=== PATIENT | male | born 1975 | race Caucasian/White ===

== ENCOUNTER 2023-12-27 12:05 | Inpatient (IN) | payer OTHER, SELFPAY ==
[2023-12-27] VITALS (21 sets, daily range): BP systolic 96–136; BP diastolic 58–95; PULSE 73–85; RESP 12–26; TEMP 36.9–37.2; O2SAT 95–99; BMI 41.0; BMI 41.5
--- NOTE | 2023-12-27 12:34 | XR_ITS ---
Patient: MARIA VICTORIA ROBLES Facility:?[facility] Patient ID:?[id number] Site Patient ID:?[id number]. Site :?1975 Study:?XRay-Extremity Right WRIST 3V-12/27/2023 1:21:01 PM Ordering Physician:DINA Final Report: INDICATION: Fall, pain. COMPARISON: None available. TECHNIQUE: Right wrist 3 views. FINDINGS: Fracture of the distal right radius with dorsal angulation of the distal fracture fragments. Associated surrounding soft tissue swelling. The fracture may extend into the articular surface. Slight widening and possible disruption of the distal radial ulnar joints. No definite fracture of the scaphoid bone. IMPRESSION: 1. Fracture of the distal right radius with dorsal angulation consistent with a Colles fracture. 2. Slight widening and possible disruption of the distal radioulnar joint. 3. Associated soft tissue swelling Dictated by Olegario Arceo MD @ 12/27/2023 2:37:38 PM Signed by:?Olegario Arceo MD @12/27/2023 2:37:38 PM (Electronic Signature)
--- NOTE | 2023-12-27 12:34 | XR_ITS ---
Patient: MARIA VICTORIA ROBLES Facility:?[facility] Patient ID:?[id number] Site Patient ID:?[id number]. Site :?1975 Study:?XRay-Chest 1V-12/27/2023 1:23:04 PM Ordering Physician:DINA Final Report: INDICATION: Fall TECHNIQUE: Single view chest. FINDINGS: Enlarged cardiac silhouette low lung volumes. Left basilar atelectasis. No effusion. No pneumothorax. Dictated by Iraida Olsen MD @ 12/27/2023 2:46:08 PM Signed by:?Iraida Olsen MD @12/27/2023 2:46:08 PM (Electronic Signature)
--- NOTE | 2023-12-27 12:35 | ED_ITS ---
HPI - Fall General Time Seen by Provider: 12:35 Date Seen: 12/27/23 Chief Complaint: Fall/Minor Trauma Stated Complaint: Fell down stairs-poss broken wrists/poss loss of c Time Seen by Provider: 12/27/23 12:08 Source: patient, family and RN notes reviewed Mode of arrival: wheelchair Limitations: no limitations History of Present Illness HPI Narrative: This 48-year-old male was seen on arrival after nursing staff triaged him and called a trauma team activation. Patient was ambulatory into the ED on his own, was brought back by wheelchair by nursing staff. He had fallen about 10 ft, feels his right ankle gave out on him. His uncle witness the fall, there was a brief loss of consciousness. Patient did see stars and lightheadedness at some point. He feels he broke both wrists in the fall, feels he almost landed flat. He denies any headache or visual changes, no neck or back pain. He is not short of breath but he is starting to feel some pain on both sides of his chest with breathing. It is across his anterior chest. It is definitely pleuritic in nature. He has had surgery on his left wrist for fracture, states he has plates and screws in it. Both of his wrists are hurting. He does not hurt above the risk, is elbows and shoulders are not bothering him. No nausea vomiting diarrhea, no abdominal pain. No visual changes. He has no pain in his pelvis, hips, knees, ankles at this time. He states he has had surgery on his right ankle and they do want to do a revision, states the ligaments or something or not quite correct. He feels this ankle gave out causing the fall. He does not drink any alcohol, no mood altering substances. Patient was walking up stairs to get a drink a water, unsure if is ankle gave out or not but suddenly he was falling backwards and then landed on his front. It certainly is concerning that there is maybe a syncopal episode here. Did review this with the patient. complaint: fall Related Data Home Medications Medication Instructions Recorded Confirmed No Known Home Medications 12/27/23 12/27/23 Allergies Allergy/AdvReac Type Severity Reaction Status Date / Time bee pollen Allergy Unknown Verified 12/27/23 12:35 shellfish derived Allergy Unknown Verified 12/27/23 12:35 Review of Systems Status of ROS: Reports: 10 or more systems reviewed and unremarkable except as noted in History and below [facility] Social History Smoking Status: Never smoker How often do you have a drink containing alcohol: never AUDIT-C Alcohol total score: 0 Non-prescribed substance use: denies use Exam Const: Vital Signs, click to edit/add: Vital Signs - 24 hr 12/27/23 12:30 12/27/23 12:34 12/27/23 12:40 Temperature 98.4 F Pulse Rate 76 Pulse Rate [Pulse Oximeter] 83 Respiratory Rate 26 H 22 Blood Pressure 100/58 L Blood Pressure [Le ft Upper Arm] 100/77 Pulse Oximetry 97 98 95 Oxygen Delivery Me od Room Air 12/27/23 12:52 12/27/23 13:24 12/27/23 13:32 Temperature Pulse Rate 77 81 83 Pulse Rate [Pulse Oximeter] Respiratory Rate 20 14 12 Blood Pressure 96/72 106/70 105/79 Blood Pressure [Le ft Upper Arm] Pulse Oximetry 96 98 98 Oxygen Delivery Me thod 12/27/23 13:41 12/27/23 13:52 12/27/23 14:02 Temperature Pulse Rate 78 77 75 Pulse Rate [Pulse Oximeter] Respiratory Rate 14 12 14 Blood Pressure 111/75 113/70 107/77 Blood Pressure [Le ft Upper Arm] Pulse Oximetry 98 97 98 Oxygen Delivery Me od 12/27/23 14:12 12/27/23 14:21 12/27/23 14:32 Temperature Pulse Rate 73 79 73 Pulse Rate [Pulse Oximeter] Respiratory Rate 14 14 16 Blood Pressure 111/87 117/88 118/74 Blood Pressure [Le ft Upper Arm] Pulse Oximetry 98 99 98 Oxygen Delivery Me thod 12/27/23 15:42 12/27/23 16:02 Temperature Pulse Rate 81 84 Pulse Rate [Pulse Oximeter] Respiratory Rate 14 16 Blood Pressure 125/80 132/87 Blood Pressure [Le ft Upper Arm] Pulse Oximetry 97 96 Oxygen Delivery Me thod Patient is in wheelchair, alert, interactive, speaking in complete sentences. His GCS is 15/15. His primary survey shows no active bleeding, protecting his airway breathing independently, no definitive circulatory issues at this time. We were able to move into the secondary survey immediately. He has some dried blood over the upper outer left zygomatic arch but no palpable tenderness or step-off. Do not see any wounds. Scalp and forehead without any hematoma. He has no midline tenderness of his cervical spine, full range of motion of his neck without any pain. Back inspected, no traumatic change, no pain on palpation. He has a little dried blood area on the end of his nose. Otherwise is face looks atraumatic. Pupils are equal round reactive, conjugate gaze. Oropharynx normal. Neck is supple, no adenopathy no thyromegaly masses or nodules. Lungs are clear, good air entry, wheeze or crackles. CV regular rate and rhythm, no murmur, normal S1-S2, no S3-S4. Abdomen is soft, nontender, nondistended, no palpable masses. Wrists do not necessarily have appreciable swelling he is holding them stiffly, does not want to move. Distal neurovascular is intact. Appears to have curvature in about the distal 3rd of his left forearm. No pain in the mid forearm up through either upper extremities. He has no pain throughout his lower extremities, is able to stand. Documenting provider has reviewed patient's vital signs: yes Course Course ED Course: Will have patient get head CT, have him on pulse oximetry and cardiac m onitoring. Will place an IV, initiate 15 mg IV Toradol for pain management. We will be looking at D-dimer, troponin just to ensure no underlying etiologies such as pulmonary embolism or cardiac manifestations causing the fall. It sounds like it was as ankle but there was LOC. he will be monitored here. He will obviously get chest x-ray, consider chest CT imaging if needed. He will get bilateral wrist x-rays. Will do full complement of labs. Reevaluation(s) Time of Reevaluation #1: 13:25 Reevaluation #1: Reviewed with patient is elevated D-dimer. Given that he is having some pleuritic pain with breathing, do think we need to proceed with chest imaging with CT PE protocol. Will also get bilateral venous ultrasounds on him given this potential nebulous history of syncope going up the stairs. Reviewed with him that both of his forearms have fractures. The left arm has a fracture with significant displacement just proximal to the plate. His right wrist is fractured as well. Will be talking to Orthopedics. I do not for see that reduction of the left fracture will be at all easy. Time of Reevaluation #2: 15:03 Reevaluation #2: Patient is back from venous ultrasound and CT of his chest. He is complaining of bilateral wrist pain. Will give him 4 mg IV morphine, 4 mg IV Zofran. I will give the morphine some time to work, will splint his arms shortly. Time of Reevaluation #3: 17:07 Reevaluation #3: Reviewed with patient that the chest CT is showing no major pulmonary emboli. We are still awaiting his ultrasound to be read. We are going to get him oral Percocet at this time for further pain management. Consultations Consultation #1: Reviewed with Yusra TA from Orthopedics. She agrees that the left arm is going to be extremely difficult to try to reduce, likely just need surgery. Will plan on splinting these, await imaging studies from that chest and venous ultrasounds to ensure no underlying venothrombotic occlusive disease. If he does not have pulmonary embolus or DVT, likely surgery tomorrow. Time: 13:44 Consultation #2: Did call [place] as patient typically sees Dr. Davies in Orthopedics. Unfortunately, there is no Ortho surgical coverage at all this weekend per Jacqueline whom I talked to in the ER. Thus, patient plans to stay here and have surgery with our Orthopedics tomorrow pending no DVT/PE. Time: 15:42 Consultation #3: Have spoken with the hospitalist Yusra Mcfarland from ortho stopped in as I was on the phone. Plan will be to admit here for surgery in the morning. Time: 17:26 Vital Signs Vital signs: Initial Vital Signs Temperature 98.4 F 12/27/23 12:30 Temperature Source Temporal Artery Scan 12/27/23 12:30 Pulse Rate 83 12/27/23 12:30 Pulse Rhythm Regular 12/27/23 12:30 Respiratory Rate 26 H 12/27/23 12:30 Blood Pressure 100/77 12/27/23 12:30 Blood Pressure Mean 84 12/27/23 12:30 Blood Pressure Position Sitting 12/27/23 12:30 Pulse Oximetry 97 12/27/23 12:30 Oxygen Delivery Method Room Air 12/27/23 12:30 Vital Signs Temperature 98.4 F 12/27/23 12:30 Pulse Rate 83 12/27/23 12:30 Respiratory Rate 26 H 12/27/23 12:30 Blood Pressure 100/77 12/27/23 12:30 Pulse Oximetry 97 12/27/23 12:30 Oxygen Delivery Method Room Air 12/27/23 12:30 Temperature 98.4 F 12/27/23 12:30 Pulse Rate 84 12/27/23 16:02 Respiratory Rate 16 12/27/23 16:02 Blood Pressure 132/87 12/27/23 16:02 Pulse Oximetry 96 12/27/23 16:02 Oxygen Delivery Method Room Air 12/27/23 12:30 Medications Administered Medications: Discontinued Medications Generic Name Dose Route Start Last Admin Trade Name Carmen PRN Reason Stop Dose Admin Ketorolac Tromethamine 15 mg 12/27/23 12:34 12/27/23 12:44 Ketorolac 15 Mg/Ml Inj IVP 12/27/23 12:35 15 mg ONCE ONE Administration Morphine Sulfate 4 mg 12/27/23 15:02 12/27/23 15:35 Morphine 4 Mg/Ml Inj IVP 12/27/23 15:03 4 mg ONCE ONE Administration Ondansetron HCl 4 mg 12/27/23 15:02 12/27/23 15:35 Ondansetron 2 Mg/Ml Inj IVP 12/27/23 15:03 4 mg ONCE ONE Administration MDM - Fall Differential Diagnosis Differential diagnosis: Likely syncope, fracture of wrist and concussion with loss of consciousness Lab Data Attestation: I reviewed the patient's lab results. Labs: Lab Results 12/27/23 Range/Units 12:43 WBC 10.14 (4.50-11.00) K/uL RBC 5.86 (4.30-5.90) m/uL Hgb 16.4 (13.5-17.5) gm/dL Hct 47.7 (37.0-53.0) % MCV 81 (80-100) fL MCH 28 (26-34) pg MCHC 34 (32-36) gm/dL RDW Coeff of [place] 12.8 (11.5-15.5) % Plt Count 291 (140-440) K/uL Neut % (Auto) 64.7 (42.0-72.0) % Lymph % (Auto) 24.7 (20-44) % [place] % (Auto) 4.8 (0.0-11.0) % Eos % (Auto) 4.3 (0.0-7.0) % Baso % (Auto) 0.7 (0.0-3.0) % Neut # (Auto) 6.56 (1.7-7.0) K/uL Lymph # (Auto) 2.50 (0.90-2.90) K/uL [place] # (Auto) 0.50 (0.00-0.90) K/UL Eos # (Auto) 0.44 (0.00-0.50) K/uL Baso # (Auto) 0.07 (0.00-0.30) K/uL Abs Immat Gran (auto) 0.08 (0.00-0.30) K/uL Imm/Tot Granulo (auto) 0.8 % D-Dimer Quant (PE/DVT) 1.29 H (0.00-0.50) ug/ml Sodium 139 (135-149) mmol/L Potassium 3.7 (3.6-5.1) mmol/L Chloride 109 (96-114) mmol/L Carbon Dioxide 21 (20-32) mmol/L Anion Gap 9 (7-15) mEq/L BUN 16 (5-24) mg/dL Creatinine 1.0 (0.5-1.5) mg/dL Estimated Creat Clear 99.16 Estimated GFR 93 ml/min Glucose 126 H (60-115) mg/dL Calcium 9.0 (8.4-10.6) mg/dL Total Bilirubin 1.0 (0.1-1.5) mg/dL AST 41 H (12-35) U/L ALT 49 (4-50) U/L Alkaline Phosphatase 80 (40-150) U/L Troponin I < 0.01 L (0.01-0.04) ng/mL C-Reactive Protein 0.6 (0.5-1.0) mg/dL Total Protein 7.6 (6.0-8.3) g/dL Albumin 4.5 (3.3-5.0) g/dL Imaging Data CT scan - head: Attestation: I have reviewed the pertinent imaging results. Radiologist's impression: Patient: MARIA VICTORIA ROBLES Facility:?[facility] Patient ID:?[id number] Site Patient ID:?[id number]. Site :?1975 Study:?CT Head W/O-12/27/2023 1:19:45 PM Ordering Physician:DINA Final Report: Indication: Trauma. Technique: CT of the brain was performed without intravenous contrast. Comparison: None relevant available at this institution. Findings: No acute blurring of the pan-white differentiation. There is no intracranial hemorrhage. The ventricles are proportionate to the cerebral sulci. The 4th ventricle is midline. Basal cisterns appear patent. No abnormal extra-axial fluid collection identified. Nonspecific hypodensity left frontal lobe. No depressed calvarial fracture. Impression: 1. No acute intracranial hemorrhage. 2. Nonspecific hypodensity left frontal lobe. This could represent sequela of prior gliosis, inflammatory or traumatic process. This may be further characterized with MRI as clinically indicated. Please note that all CT scans at this facility use dose modulation, iterative reconstruction, and/or weight-based dosing when appropriate to reduce radiation dose to as low as reasonably achievable. Dictated by Nick Agosto MD @ 12/27/2023 2:22:42 PM (Electronic Signature) Chest x-ray: Attestation: I have reviewed the pertinent imaging results. Radiologist's impression: Patient: MARIA VICTORIA ROBLES Facility:?[facility] Patient ID:?[id number] Site Patient ID:?[id number]. Site :?1975 Study:?XRay Chest 1V-12/27/2023 1:23:04 PM Ordering Physician:DIAN Final Report: INDICATION: Fall TECHNIQUE: Single view chest. FINDINGS: Enlarged cardiac silhouette low lung volumes. Left basilar atelectasis. No effusion. No pneumothorax. Dictated by Iraida Olsen MD @ 12/27/2023 2:46:08 PM (Electronic Signature) XR wrists: Attestation: I have reviewed the pertinent imaging results. My impression: My preliminary review, right distal radius fracture with comminution angulation, left forearm fracture proximal to the hardware from his prior surgical repair of his left wrist fracture, significant dislocation of this fracture fragment in the left forearm of the radius. Radiologist's impression: Patient: MARIA VICTORIA ROBLES Facility:?[facility] Patient ID:?[id number] Site Patient ID:?[id number]. Site :?1975 Study:?XRay Extremity Right WRIST 3V-12/27/2023 1:21:01 PM Ordering Physician:DINA Final Report: INDICATION: Fall, pain. COMPARISON: None available. TECHNIQUE: Right wrist 3 views. FINDINGS: Fracture of the distal right radius with dorsal angulation of the distal fracture fragments. Associated surrounding soft tissue swelling. The fracture may extend into the articular surface. Slight widening and possible disruption of the distal radial ulnar joints. No definite fracture of the scaphoid bone. IMPRESSION: 1. Fracture of the distal right radius with dorsal angulation consistent with a Colles fracture. 2. Slight widening and possible disruption of the distal radioulnar joint. 3. Associated soft tissue swelling Dictated by Olegario Arceo MD @ 12/27/2023 2:37:38 PM (Electronic Signature) [facility]: [facility] Facility:?[facility] Patient ID:?[id number] Site Patient ID:?[id number]. Site :?1975 Study:?XRay Extremity Left WRIST 3V-12/27/2023 1:21:41 PM Ordering Physician:DINA Final Report: INDICATION: Fall, pain. Comparison none. Technique : Left wrist 3 views. FINDINGS: Postoperative changes of plate and pin fixation of the distal left radius. There is a transverse displaced fracture of the distal left radius just proximal to the postoperative plate and screws. Grossly normal articulation of the radiocarpal joint. There is widening and possible disruption of the distal radial ulnar joint. Linear lucency across the scaphoid bone concerning for fracture. Soft tissue swelling about the wrist. IMPRESSION: 1. Postoperative changes plate and pin fixation of the distal left radius. 2. Transverse displaced fracture of the left radius just proximal to the postoperative site. 3. Widening and possible disruption of the left distal radioulnar joint 4. Linear lucency across the scaphoid bone concerning for fracture. Dictated by Olegario Arceo MD @ 12/27/2023 2:40:04 PM (Electronic Signature) CT scan - chest: Attestation: I have reviewed the pertinent imaging results. Radiologist's impression: Patient: [facility] Facility:?[facility] Patient ID:?[id number] Site Patient ID:?[id number]. Site :?1975 Study:?CT Chest PE W/IV-12/27/2023 3:26:56 PM Ordering Physician:DINA Final Report: INDICATION: SYNCOPE,FALL TECHNIQUE: CT chest PE was acquired with 95 cc Isovue 370 IV contrast. COMPARISON: None. FINDINGS: Heart and vasculature: Contrast opacification of the pulmonary arterial tree is adequate. No sign of pulmonary embolism to the level of the proximal segmental branches. Evaluation of the more distal segmental branches is limited due to respiratory motion artifact. Heart size is normal. Thoracic aorta and pulmonary artery are normal in caliber. Lungs and pleural: No suspicious nodules or infiltrates. Mild linear bibasilar atelectasis. No pleural effusions, pleural thickening, or pneumothorax. Lymph nodes/mediastinum: No mediastinal, hilar, or axillary adenopathy. Chest wall: No masses. Upper abdomen: No acute or significant findings. Bones: Unremarkable for age. IMPRESSION: No sign of pulmonary embolism to the level of the proximal segmental branches. Evaluation of the more distal segmental branches is limited due to respiratory motion artifact. No other evidence of acute cardiopulmonary process. Please note that all CT scans at this facility use dose modulation, iterative reconstruction, and/or weight-based dosing when appropriate to reduce radiation dose to as low as reasonably achievable. Dictated by Greg Corrigan MD @ 12/27/2023 4:44:59 PM (Electronic Signature) Venous US: Attestation: I have reviewed the pertinent imaging results. Radiologist's impression: [facility] Patient ID:?[id number] Site Patient ID:?[id number]. Site :?1975 Study:?US Extremity Venous BILAT LOWER-12/27/2023 3:30:41 PM Ordering Physician:DINA Final Report: INDICATION: Bilateral lower extremity swelling. TECHNIQUE: Bilateral lower extremity Doppler venous ultrasound examination was performed. Grayscale and color Doppler images were obtained. COMPARISON: None. FINDINGS: RIGHT LOWER EXTREMITY: Common femoral vein: Fully compressible. No deep vein thrombus. Normal flow and response to augmentation on color Doppler imaging. Superficial femoral vein: Fully compressible. No deep vein thrombus. Normal flow on color Doppler imaging. Deep femoral vein: No deep vein thrombus Popliteal femoral vein: Fully compressible. No deep vein thrombus. Normal flow on color Doppler imaging. Lower calf: The visualized posterior tibial and peroneal veins are fully compressible. No deep vein thrombus. Normal flow and response to augmentation on color Doppler imaging. Superficial veins: The superficial veins, including the greater saphenous vein, remain patent and are fully compressible. Soft tissues: No popliteal fossa fluid collection identified. LEFT LOWER EXTREMITY: Common femoral vein: Fully compressible. No deep vein thrombus. Normal flow and response to augmentation on color Doppler imaging. Superficial femoral vein: Fully compressible. No deep vein thrombus. Normal flow on color Doppler imaging. Deep femoral vein: No deep vein thrombus Popliteal femoral vein: Fully compressible. No deep vein thrombus. Normal flow on color Doppler imaging. Lower calf: The visualized posterior tibial and peroneal veins are fully compressible. No deep vein thrombus. Normal flow and response to augmentation on color Doppler imaging. Superficial veins: The superficial veins, including the greater saphenous vein, remain patent and are fully compressible. Soft tissues: No popliteal fossa fluid collection identified. IMPRESSION: No deep vein thrombus. Unremarkable doppler ultrasound examination of the bilateral lower extremities. Dictated by Heath Hess MD @ 12/27/2023 5:08:54 PM (Electronic Signature) ECG Data Attestation: I personally reviewed and interpreted this ECG as follows: (Sinus rhythm, 75 beats per minute. No ischemic change, no infarct.) ECG interpretation date: 12/27/23 ECG interpretation time: 12:56 Prior ECG tracings: not available for review Discharge Plan Discharge Clinical Impression: Closed head injury with brief loss of consciousness Colles' fracture of right radius Qualifiers: Encounter type: initial encounter Fracture type: closed Qualified Code(s): S52.531A - Colles' fracture of right radius, initial encounter for closed fracture Fracture, radius Qualifiers: Encounter type: initial encounter Radius location: shaft Fracture type: closed Fracture morphology: transverse Fracture alignment: displaced Laterality: left Qualified Code(s): S52.322A - Displaced transverse fracture of shaft of left radius, initial encounter for closed fracture Fall Qualifiers: Encounter type: initial encounter Qualified Code(s): W19.XXXA - Unspecified fall, initial encounter Patient Disposition: Admitted As Observation Prescriptions: No Action No Known Home Medications Follow Up/Referrals: Provider,Not a Local [Primary Care Provider] - Procedures Orthopedic Splinting/Casting Injury #1: Side: left Upper Extremity Injury Location: forearm and wrist Upper extremity immobilizer: thumb spica Applied by clinician: / Conclusion: patient tolerated procedure Injury #2: Side: right Upper Extremity Injury Location: wrist Upper extremity immobilizer: short arm Applied by clinician: / Conclusion: patient tolerated procedure
[2023-12-27] MEDS: KETOROLAC 15 MG/ML inj IVP (12:44)
[2023-12-27 12:51] LABS: Basophils Absolute Auto 0.07 K/uL (0.00-0.30); Basophils Percent Auto 0.7 % (0.0-3.0); Eosinophils Absolute Auto 0.44 K/uL (0.00-0.50); Eosinophils Percent Auto 4.3 % (0.0-7.0); Hematocrit 47.7 % (37.0-53.0); Hemoglobin* 16.4 gm/dL (13.5-17.5); Immature Granulocytes Abs Auto 0.08 K/uL (0.00-0.30); Immature Granulocytes Pct Auto 0.8 %; Lymphocytes Percent Auto 24.7 % (20-44); Mean Corpuscular HGB Conc 34 gm/dL (32-36); Mean Corpuscular Hemoglobin 28 pg (26-34); Mean Corpuscular Volume 81 fL (80-100); Monocytes Percent Auto 4.8 % (0.0-11.0); Neutrophils Absolute Auto 6.56 K/uL (1.7-7.0); Neutrophils Percent Auto 64.7 % (42.0-72.0); Platelet Count* 291 K/uL (140-440); RDW Coefficient of Variation % 12.8 % (11.5-15.5); Red Blood Count 5.86 m/uL (4.30-5.90); White Blood Count* 10.14 K/uL (4.50-11.00)
[2023-12-27 13:00] LABS: Slide Review Reflex No
[2023-12-27 13:09] LABS: Albumin* 4.5 g/dL (3.3-5.0); Chloride* 109 mmol/L (96-114); Sodium* 139 mmol/L (135-149)
[2023-12-27 13:10] LABS: Potassium* 3.7 mmol/L (3.6-5.1)
[2023-12-27 13:12] LABS: Anion Gap 9 mEq/L (7-15); Carbon Dioxide* 21 mmol/L (20-32); Est. Creatinine Clearance* 99.16; Estimated Glomerular Filt Rate 93 ml/min
[2023-12-27 13:13] LABS: Alanine Aminotransferase* 49 U/L (4-50); Alkaline Phosphatase* 80 U/L (40-150); Aspartate Amino Transferase* 41 U/L (12-35); Blood Urea Nitrogen* 16 mg/dL (5-24); D Dimer Quantitative* 1.29 ug/ml (0.00-0.50); Glucose* 126 mg/dL (60-115); Total Protein* 7.6 g/dL (6.0-8.3)
[2023-12-27 13:16] LABS: C Reactive Protein* 0.6 mg/dL (0.5-1.0)
--- NOTE | 2023-12-27 13:22 | US_ITS ---
Patient: MARIA VICTORIA ROBLES Facility:?[facility] Patient ID:?[id number] Site Patient ID:?[id number]. Site :?1975 Study:?US-Extremity Venous BILAT LOWER-12/27/2023 3:30:41 PM Ordering Physician:DINA Final Report: INDICATION: Bilateral lower extremity swelling. TECHNIQUE: Bilateral lower extremity Doppler venous ultrasound examination was performed. Grayscale and color Doppler images were obtained. COMPARISON: None. FINDINGS: RIGHT LOWER EXTREMITY: Common femoral vein: Fully compressible. No deep vein thrombus. Normal flow and response to augmentation on color Doppler imaging. Superficial femoral vein: Fully compressible. No deep vein thrombus. Normal flow on color Doppler imaging. Deep femoral vein: No deep vein thrombus Popliteal femoral vein: Fully compressible. No deep vein thrombus. Normal flow on color Doppler imaging. Lower calf: The visualized posterior tibial and peroneal veins are fully compressible. No deep vein thrombus. Normal flow and response to augmentation on color Doppler imaging. Superficial veins: The superficial veins, including the greater saphenous vein, remain patent and are fully compressible. Soft tissues: No popliteal fossa fluid collection identified. LEFT LOWER EXTREMITY: Common femoral vein: Fully compressible. No deep vein thrombus. Normal flow and response to augmentation on color Doppler imaging. Superficial femoral vein: Fully compressible. No deep vein thrombus. Normal flow on color Doppler imaging. Deep femoral vein: No deep vein thrombus Popliteal femoral vein: Fully compressible. No deep vein thrombus. Normal flow on color Doppler imaging. Lower calf: The visualized posterior tibial and peroneal veins are fully compressible. No deep vein thrombus. Normal flow and response to augmentation on color Doppler imaging. Superficial veins: The superficial veins, including the greater saphenous vein, remain patent and are fully compressible. Soft tissues: No popliteal fossa fluid collection identified. IMPRESSION: No deep vein thrombus. Unremarkable doppler ultrasound examination of the bilateral lower extremities. Dictated by Heath Hess MD @ 12/27/2023 5:08:54 PM Signed by:Adama Hess MD @12/27/2023 5:08:54 PM (Electronic Signature)
--- NOTE | 2023-12-27 13:22 | CT_ITS ---
Patient: MARIA VICTORIA ROBLES Facility:?[facility] Patient ID:?[id number] Site Patient ID:?[id number]. Site :?1975 Study:?CT-Chest PE W/IV-12/27/2023 3:26:56 PM Ordering Physician:DINA Final Report: INDICATION: SYNCOPE,FALL TECHNIQUE: CT chest PE was acquired with 95 cc Isovue 370 IV contrast. COMPARISON: None. FINDINGS: Heart and vasculature: Contrast opacification of the pulmonary arterial tree is adequate. No sign of pulmonary embolism to the level of the proximal segmental branches. Evaluation of the more distal segmental branches is limited due to respiratory motion artifact. Heart size is normal. Thoracic aorta and pulmonary artery are normal in caliber. Lungs and pleural: No suspicious nodules or infiltrates. Mild linear bibasilar atelectasis. No pleural effusions, pleural thickening, or pneumothorax. Lymph nodes/mediastinum: No mediastinal, hilar, or axillary adenopathy. Chest wall: No masses. Upper abdomen: No acute or significant findings. Bones: Unremarkable for age. IMPRESSION: No sign of pulmonary embolism to the level of the proximal segmental branches. Evaluation of the more distal segmental branches is limited due to respiratory motion artifact. No other evidence of acute cardiopulmonary process. Please note that all CT scans at this facility use dose modulation, iterative reconstruction, and/or weight-based dosing when appropriate to reduce radiation dose to as low as reasonably achievable. Dictated by Greg Corrigan MD @ 12/27/2023 4:44:59 PM Signed by:?Greg Corrigan MD @12/27/2023 4:44:59 PM (Electronic Signature)
[2023-12-27 13:24] LABS: Troponin I* < 0.01 ng/mL (0.01-0.04)
[2023-12-27] MEDS: ONDANSETRON 2 MG/ML inj 4 MG IVP (15:35)
[2023-12-27] MEDS: MORPHINE 4 MG/ML INJ IVP (15:35)
[2023-12-27] MEDS: OxyCODONE/APAP 5-325 TABLET 1 TAB PO (17:21)
--- NOTE | 2023-12-27 18:21 | P.IMHP_ITS ---
Hospitalist- H&P: HPI History of Present Illness Date Seen: 12/27/23 Chief complaint: Fell down stairs-poss broken wrists/poss loss of c Narrative: Jaleel Amado is a 48 year old male who presented to the ED with a cousin after a fall. He was outside at his uncle's house, was walking up stairs to go inside and get some water, fell (believes this to be mechanical, h/o R ankle injury and surgery - thinks his ankle gave out) approximately 10 feet and fell onto bilateral wrists. There seemed to be a brief LOC (after the fall, 2/2 pain), no recurrence. [place] normal with the exception of wrist pain during ride to the ER. ER course and findings: - elevated D-dimer, negative CT PE and negative bilateral lower extremity ultrasounds for clot - no acute abnormalities on chest x-ray - nonspecific hypodensity in left frontal lobe on head CT, could be worked up as an outpatient with MRI (patient aware, asymptomatic) - bilateral distal radius fractures. History of left wrist surgery in the past, previous hardware not disrupted No significant past medical history, although he rarely sees Primary Care. No daily medications, no history of blood clots. + Family history of DM2 Has tolerated anesthesia well in the past with previous surgeries. Review of Systems Status of ROS: Reports: 10 or more systems reviewed and unremarkable except as noted in History and below Narrative: - no concerning dyspnea or chest pain with activity - noted to snore at night, has never been tested for IZZY PFSH PFSH Surgical History (Updated 12/27/23 @ 19:23 by Suzy Davis MD) History of ankle surgery ?Z98.890 - Other specified postprocedural states (ICD-10) H/O left wrist surgery ?Z98.890 - Other specified postprocedural states (ICD-10) Family History (Updated 12/27/23 @ 19:24 by Suzy Davis MD) Sister Diabetes Social History (Updated 12/27/23 @ 19:25 by Suzy Davis MD) Narrative: Lives alone in [place], has worked in [employer]. Currently on Disability from a R ankle injury. 2 adult children. Nonsmoker, no ETOH. Daughter Luisa or Uncle Rome would be MDM if needed. Requests Full Code status. Smoking Status: Never smoker How often do you have a drink containing alcohol: never AUDIT-C Alcohol total score: 0 Non-prescribed substance use: denies use Meds Home Medications and Allergies Home Medications Medication Instructions Recorded Confirmed Type No Known Home Medications 12/27/23 12/27/23 History Allergies Allergy/AdvReac Type Severity Reaction Status Date / Time bee pollen Allergy Unknown Verified 12/27/23 12:35 shellfish derived Allergy Unknown Verified 12/27/23 12:35 Exam Narrative: Exam Narrative: GEN: Alert and oriented, nontoxic. Sitting comfortably in bed HEENT: EOMIs bilaterally, no scleral icterus CV: RRR, No concerning murmurs R: LCTA bilaterally without concerning wheezing, air movement adequate Ext: wwp, no concerning edema Skin: No concerning skin lesions or rashes on exposed skin Neuro: No focal deficits, no resting tremor Psych: Appropriate Const: Vital Signs, click to edit/add: Vital Signs - 24 hr 12/27/23 12:30 12/27/23 12:34 12/27/23 12:40 Temperature 98.4 F Pulse Rate 76 Pulse Rate [Pulse Oximeter] 83 Respiratory Rate 26 H 22 Blood Pressure 100/58 L Blood Pressure [Le ft Upper Arm] 100/77 Pulse Oximetry 97 98 95 Oxygen Delivery Me thod Room Air 12/27/23 12:52 12/27/23 13:24 12/27/23 13:32 Temperature Pulse Rate 77 81 83 Pulse Rate [Pulse Oximeter] Respiratory Rate 20 14 12 Blood Pressure 96/72 106/70 105/79 Blood Pressure [Le ft Upper Arm] Pulse Oximetry 96 98 98 Oxygen Delivery Me thod 12/27/23 13:41 12/27/23 13:52 12/27/23 14:02 Temperature Pulse Rate 78 77 75 Pulse Rate [Pulse Oximeter] Respiratory Rate 14 12 14 Blood Pressure 111/75 113/70 107/77 Blood Pressure [Le ft Upper Arm] Pulse Oximetry 98 97 98 Oxygen Delivery Me thod 12/27/23 14:12 12/27/23 14:21 12/27/23 14:32 Temperature Pulse Rate 73 79 73 Pulse Rate [Pulse Oximeter] Respiratory Rate 14 14 16 Blood Pressure 111/87 117/88 118/74 Blood Pressure [Le ft Upper Arm] Pulse Oximetry 98 99 98 Oxygen Delivery Me thod 12/27/23 15:42 12/27/23 16:02 12/27/23 16:31 Temperature Pulse Rate 81 84 84 Pulse Rate [Pulse Oximeter] Respiratory Rate 14 16 14 Blood Pressure 125/80 132/87 115/95 H Blood Pressure [Le ft Upper Arm] Pulse Oximetry 97 96 95 Oxygen Delivery Tx thod 12/27/23 17:02 12/27/23 17:31 Temperature Pulse Rate 84 82 Pulse Rate [Pulse Oximeter] Respiratory Rate 16 14 Blood Pressure 122/91 H 135/95 H Blood Pressure [Le ft Upper Arm] Pulse Oximetry 97 98 Oxygen Delivery [facility] Hospitalist - H&P: Result Labs Labs: Short CBC 12/27/23 Range/Units 12:43 WBC 10.14 (4.50-11.00) K/uL Hgb 16.4 (13.5-17.5) gm/dL Hct 47.7 (37.0-53.0) % Plt Count 291 (140-440) K/uL BMP 12/27/23 12:43 Sodium 139 Potassium 3.7 Chloride 109 Carbon Dioxide 21 BUN 16 Creatinine 1.0 Glucose 126 H Calcium 9.0 Cardiac Enzymes 12/27/23 Range/Units 12:43 Troponin I < 0.01 L (0.01-0.04) ng/mL Liver Function 12/27/23 Range/Units 12:43 Total Bilirubin 1.0 (0.1-1.5) mg/dL AST 41 H (12-35) U/L ALT 49 (4-50) U/L Alkaline Phosphatase 80 (40-150) U/L Albumin 4.5 (3.3-5.0) g/dL Assessment and Plan Assessment and plan (1) Colles' fracture of right radius: Problem comment: - Bilateral wrist fractures - Dr. Vega of Orthopedic surgery has seen patient, plans for surgical repair tomorrow morning - no history of previous anesthesia or surgical complication Status: Acute (2) Closed head injury with brief loss of consciousness: Problem comment: - follow on telemetry to ensure no arrythmia - consider outpatient MRI to further characterize nonspecific hypodensity in L frontal lobe on CT (patient aware of this finding) Status: Acute (3) Fracture, radius: Status: Acute
[2023-12-27] MEDS: OXYCODONE 5 MG TABLET PO (20:14)
[2023-12-27] MEDS: SODIUM CHLORIDE 0.9 % (FLUSH) 10 ML SYRINGE 5 ML IVF (20:15)
[2023-12-28] VITALS (16 sets, daily range): BP systolic 135–184; BP diastolic 73–104; PULSE 69–112; RESP 14–20; TEMP 36.3–37.6; O2SAT 91–96
[2023-12-28] MEDS: OXYCODONE 5 MG TABLET PO ×3 (00:19→16:34)
[2023-12-28 06:22] LABS: Basophils Percent Auto 0.4 % (0.0-3.0); Eosinophils Percent Auto 2.4 % (0.0-7.0); Hematocrit 45.4 % (37.0-53.0); Hemoglobin* 15.2 gm/dL (13.5-17.5); Immature Granulocytes Pct Auto 0.3 %; Lymphocytes Percent Auto 17.4 % (20-44); Mean Corpuscular HGB Conc 34 gm/dL (32-36); Mean Corpuscular Hemoglobin 28 pg (26-34); Mean Corpuscular Volume 84 fL (80-100); Monocytes Percent Auto 6.6 % (0.0-11.0); Neutrophils Percent Auto 72.9 % (42.0-72.0); Platelet Count* 264 K/uL (140-440); RDW Coefficient of Variation % 13.1 % (11.5-15.5); Red Blood Count 5.43 m/uL (4.30-5.90); White Blood Count* 12.13 K/uL (4.50-11.00)
[2023-12-28 06:24] LABS: Slide Review Reflex No
[2023-12-28 06:50] LABS: Chloride* 110 mmol/L (96-114); Potassium* 3.9 mmol/L (3.6-5.1); Sodium* 139 mmol/L (135-149)
[2023-12-28 06:53] LABS: Anion Gap 4 mEq/L (7-15); Blood Urea Nitrogen* 21 mg/dL (5-24); Carbon Dioxide* 25 mmol/L (20-32); Creatinine* 0.9 mg/dL (0.5-1.5); Est. Creatinine Clearance* 110.17; Estimated Glomerular Filt Rate 105 ml/min; Glucose* 109 mg/dL (60-115)
[2023-12-28 06:54] LABS: Calcium* 8.8 mg/dL (8.4-10.6)
--- NOTE | 2023-12-28 06:58 | PC.NURSE ---
19-07: pleasant and cooperative. VSS. Bilat wrists wrapped and elevated. rating pain 6/10, prn Oxy given, offered relief.
[2023-12-28] MEDS: MORPHINE 4 MG/ML INJ IVP ×2 (08:15→15:06)
[2023-12-28] MEDS: SODIUM CHLORIDE 0.9 % (FLUSH) 10 ML SYRINGE 5 ML IVF (08:16)
--- NOTE | 2023-12-28 08:25 | XR_ITS ---
Patient: MARIA VICTORIA ROBLES Facility:?[facility] Patient ID:?[id number] Site Patient ID:?[id number]. Site :?[id number] Study:?XRay-Extremity Right Wrist 2v Intraoperative-12/28/2023 2:26:17 PM Ordering Physician:Roxanna Final Report: Indication: ORIF right wrist Technique: Three fluoroscopic images of the right wrist. Fluoroscopic time 64.4 seconds. IMPRESSION: Fluoroscopic guidance for open reduction internal fixation of distal radial metaphyseal fracture. Dictated by Jam Francisco MD @ 12/29/2023 6:10:48 AM Signed by:?Jam Francisco MD @12/29/2023 6:10:48 AM (Electronic Signature)
--- NOTE | 2023-12-28 08:25 | XR_ITS ---
Patient: MARIA VICTORIA ROBLES Facility:?[facility] Patient ID:?[id number] Site Patient ID:?[id number]. Site :?1975 Study:?XRay-Extremity Left Intraop-12/28/2023 2:21:44 PM Ordering Physician:Roxanna Final Report: Indication: ORIF left wrist Technique: Six fluoroscopic images of the left wrist. Fluoroscopic time 26.1 seconds. IMPRESSION: Fluoroscopic guidance for fixation about the distal radial diaphyseal fracture. Dictated by Jam Francisco MD @ 12/29/2023 6:09:40 AM Signed by:?Jam Francisco MD @12/29/2023 6:09:40 AM (Electronic Signature)
--- NOTE | 2023-12-28 09:00 | PM.ORCN ---
History of Present Illness HPI Date Seen: 12/27/23 Chief complaint: Fell down stairs-poss broken wrists/poss loss of c Narrative: The patient was seen in 12/27/2023 in the emergency department. He is a 48-year-old, [id number] gentleman who fell down the stairs sustaining bilateral wrist fractures. He has broken the left wrist previously, undergoing ORIF in [place] in 2019. He has never injured her had surgery on the right wrist. Review of Systems Narrative: The patient denies: Fever, night sweats, shaking chills, nausea, vomiting, diarrhea, chest pain, chest pressure, shortness of breath, no rash, no change in hearing or vision, no issues with bleeding or clotting PFSH PFSH Surgical History History of ankle surgery ?Z98.890 - Other specified postprocedural states (ICD-10) H/O left wrist surgery ?Z98.890 - Other specified postprocedural states (ICD-10) Family History Sister Diabetes Social History Narrative: Lives alone in [place], has worked in [employer]. Currently on Disability from a R ankle injury. 2 adult children. Nonsmoker, no ETOH. Daughter Luisa or Uncle Rome would be MDM if needed. Requests Full Code status. What is your current living situation?: I presently have a place to live Problems where you live: no known problems Problems where you live details: N/A In the past 12 months, utilities in danger of being shut off: no In past 12 months, lack of transportation kept you from medical appts, meetings, work, or getting things needed for daily living: no In the past 12 mos, have been you worried that your food would run out before you had money to buy more?: never true In the past 12 mos, the food you bought just didn't last and you didn't have money to buy more?: never true Smoking Status: Never smoker How often do you have a drink containing alcohol: never AUDIT-C Alcohol total score: 0 Non-prescribed substance use: denies use Caffeine: Yes How often does anyone, including family, friends and others, physically hurt you: never How often does anyone, including family, friends and others, insult or talk down to you: never How often does anyone, including family, friends and others, threaten you with harm: never How often does anyone, including family, friends and others, scream or curse at you: never service: No Meds Home Medications and Allergies Home Medications Medication Instructions Recorded Confirmed Type No Known Home Medications 12/27/23 12/27/23 History Allergies Allergy/AdvReac Type Severity Reaction Status Date / Time bee pollen Allergy Unknown Verified 12/27/23 12:35 shellfish derived Allergy Unknown Verified 12/27/23 12:35 Ortho Exam Narrative Exam Narrative: The patient is alert and oriented x3, in no acute distress, they are able to converse in a normal speaking voice without obvious hearing loss and with nonlabored breathing. Both wrists are in a short-arm splint. There is obvious apex ulnar angulation on the left, none on the right. CMS is intact by laterally. Const Vital Signs, click to edit/add: Vital Signs - 24 hr 12/27/23 12:30 12/27/23 12:34 12/27/23 12:40 Temperature 98.4 F Pulse Rate 76 Pulse Rate [Pulse Oximeter] 83 Pulse Rate [Right Pulse Oximeter] Respiratory Rate 26 H 22 Blood Pressure 100/58 L Blood Pressure [Left Arm] Blood Pressure [Left Upper Arm] 100/77 Pulse Oximetry 97 98 95 Oxygen Delivery Method Room Air 12/27/23 12:52 12/27/23 13:24 12/27/23 13:32 Temperature Pulse Rate 77 81 83 Pulse Rate [Pulse Oximeter] Pulse Rate [Right Pulse Oximeter] Respiratory Rate 20 14 12 Blood Pressure 96/72 106/70 105/79 Blood Pressure [Left Arm] Blood Pressure [Left Upper Arm] Pulse Oximetry 96 98 98 Oxygen Delivery Method 12/27/23 13:41 12/27/23 13:52 12/27/23 14:02 Temperature Pulse Rate 78 77 75 Pulse Rate [Pulse Oximeter] Pulse Rate [Right Pulse Oximeter] Respiratory Rate 14 12 14 Blood Pressure 111/75 113/70 107/77 Blood Pressure [Left Arm] Blood Pressure [Left Upper Arm] Pulse Oximetry 98 97 98 Oxygen Delivery Method 12/27/23 14:12 12/27/23 14:21 12/27/23 14:32 Temperature Pulse Rate 73 79 73 Pulse Rate [Pulse Oximeter] Pulse Rate [Right Pulse Oximeter] Respiratory Rate 14 14 16 Blood Pressure 111/87 117/88 118/74 Blood Pressure [Left Arm] Blood Pressure [Left Upper Arm] Pulse Oximetry 98 99 98 Oxygen Delivery Method 12/27/23 15:42 12/27/23 16:02 12/27/23 16:31 Temperature Pulse Rate 81 84 84 Pulse Rate [Pulse Oximeter] Pulse Rate [Right Pulse Oximeter] Respiratory Rate 14 16 14 Blood Pressure 125/80 132/87 115/95 H Blood Pressure [Left Arm] Blood Pressure [Left Upper Arm] Pulse Oximetry 97 96 95 Oxygen Delivery Method 12/27/23 17:02 12/27/23 17:31 12/27/23 18:28 Temperature 98.5 F Pulse Rate 84 82 Pulse Rate [Pulse Oximeter] Pulse Rate [Right Pulse Oximeter] 85 Respiratory Rate 16 14 16 Blood Pressure 122/91 H 135/95 H Blood Pressure [Left Arm] 136/81 Blood Pressure [Left Upper Arm] Pulse Oximetry 97 98 98 Oxygen Delivery Method Room Air 12/27/23 18:28 12/27/23 20:13 12/27/23 22:53 Temperature 98.9 F Pulse Rate 82 Pulse Rate [Pulse Oximeter] Pulse Rate [Right Pulse Oximeter] 84 Respiratory Rate 16 16 Blood Pressure Blood Pressure [Left Arm] 130/82 Blood Pressure [Left Upper Arm] Pulse Oximetry 95 95 Oxygen Delivery Method Room Air Room Air 12/27/23 23:00 12/27/23 23:00 12/28/23 04:00 Temperature 98.3 F Pulse Rate Pulse Rate [Pulse Oximeter] Pulse Rate [Right Pulse Oximeter] 84 Respiratory Rate 16 16 16 Blood Pressure Blood Pressure [Left Arm] 135/73 Blood Pressure [Left Upper Arm] Pulse Oximetry 95 94 Oxygen Delivery Method Room Air Room Air 12/28/23 07:00 12/28/23 07:00 12/28/23 07:00 Temperature 98.0 F Pulse Rate Pulse Rate [Pulse Oximeter] Pulse Rate [Right Pulse Oximeter] 80 80 Respiratory Rate 18 18 Blood Pressure Blood Pressure [Left Arm] 145/78 H Blood Pressure [Left Upper Arm] Pulse Oximetry 93 93 Oxygen Delivery Method Room Air Room Air 12/28/23 07:00 Temperature Pulse Rate 77 Pulse Rate [Pulse Oximeter] Pulse Rate [Right Pulse Oximeter] Respiratory Rate Blood Pressure Blood Pressure [Left Arm] Blood Pressure [Left Upper Arm] Pulse Oximetry Oxygen Delivery Method Results Labs Labs: Laboratory Results - last 48 hr 12/27/23 12/28/23 12:43 06:00 WBC 10.14 12.13 H RBC 5.86 5.43 Hgb 16.4 15.2 Hct 47.7 45.4 MCV 81 84 MCH 28 28 MCHC 34 34 RDW Coeff of [place] 12.8 13.1 Plt Count 291 264 Neut % (Auto) 64.7 72.9 H Lymph % (Auto) 24.7 17.4 L [place] % (Auto) 4.8 6.6 Eos % (Auto) 4.3 2.4 Baso % (Auto) 0.7 0.4 Neut # (Auto) 6.56 8.80 H Lymph # (Auto) 2.50 2.10 [place] # (Auto) 0.50 0.80 Eos # (Auto) 0.44 0.30 Baso # (Auto) 0.07 0.00 Abs Immat Gran (auto) 0.08 0.00 Imm/Tot Granulo (auto) 0.8 0.3 D-Dimer Quant (PE/DVT) 1.29 H Sodium 139 139 Potassium 3.7 3.9 Chloride 109 110 Carbon Dioxide 21 25 Anion Gap 9 4 L BUN 16 21 Creatinine 1.0 0.9 Estimated Creat Clear 99.16 110.17 Estimated GFR 93 105 Glucose 126 H 109 Calcium 9.0 8.8 Total Bilirubin 1.0 AST 41 H ALT 49 Alkaline Phosphatase 80 Troponin I < 0.01 L C-Reactive Protein 0.6 Total Protein 7.6 Albumin 4.5 Diagnostic results Additional Comments: Three views of both wrists show a Galeazzi fracture on the left, just proximal to a [employer] volar plate. The ulna is intact. The right wrist shows an extra-articular distal radius fracture, with a marked amount of dorsal comminution, minimal loss of length and volar tilt, apex volar angulation. Assessment and Plan Assessment and plan (1) Colles' fracture of right radius: Problem comment: - Bilateral wrist fractures - Dr. Vega of Orthopedic surgery has seen patient, plans for surgical repair tomorrow morning - no history of previous anesthesia or surgical complication Status: Acute Total time spent: Total time spent is greater than 50% in coordination of care (as documented) at patient's floor/unit and/or counseling patient: (2) Closed head injury with brief loss of consciousness: Problem comment: - follow on telemetry to ensure no arrythmia - consider outpatient MRI to further characterize nonspecific hypodensity in L frontal lobe on CT (patient aware of this finding) Status: Acute Total time spent: Total time spent is greater than 50% in coordination of care (as documented) at patient's floor/unit and/or counseling patient: (3) Fracture, radius: Status: Acute Total time spent: Total time spent is greater than 50% in coordination of care (as documented) at patient's floor/unit and/or counseling patient: (4) Galeazzi's fracture of left radius, initial encounter for closed fracture: Status: Acute Plan Assessment: Left upper extremity Galeazzi fracture, history of distal radius fracture ORIF Right upper extremity distal radius fracture Plan: I told Jaleel that both of his injuries are best treated with ORIF. He agrees and wishes to proceed. He will be admitted to the hospital overnight, NPO after midnight and we will proceed with surgery in the morning.
[2023-12-28] MEDS: LACTATED RINGERS 1000 ML 1,000 ML 125 ML IV ×2 (09:04→10:46)
[2023-12-28] MEDS: CEFAZOLIN 2 GM INJ 3 GM IVP (09:29)
--- NOTE | 2023-12-28 11:03 | REH.OT ---
OT orders for evaluate and treat. Pt. in surgery this AM and no caregiver present for education, evaluation not able to be completed. Per nsg, anticipate pt. will return home today with time recorder assistance from pt's uncle. Recommend outpatient OT upon d/c.
--- NOTE | 2023-12-28 11:18 | SUR.OPER ---
4 screws explanted from left wrist which was previously repaired with plate and screws. Old plate late left in left wrist
[2023-12-28] MEDS: BUPIVACAINE 0.25% 30 ML INJECTION (12:29)
--- NOTE | 2023-12-28 12:31 | P.ORPRC_ITS ---
Procedure Note Date of procedure: 12/28/23 Procedure: PREOPERATIVE DIAGNOSIS: 1. Left upper extremity Galeazzi fracture, history of left upper extremity distal radius fracture ORIF 2. Comminuted and displaced extra-articular right upper extremity distal radius fracture POSTOPERATIVE DIAGNOSIS: 1. Left upper extremity Galeazzi fracture, history of left upper extremity distal radius fracture ORIF 2. Comminuted and displaced extra-articular right upper extremity distal radius fracture NAME OF OPERATION: Open reduction internal fixation bilateral upper extremity fractures SURGEON: Milo Vega MD FAST FOOD SHIFT LEAD: Stephani Mendenhall PA-C ANESTHESIA: General ESTIMATED BLOOD LOSS: 50 mL COMPLICATIONS: None SPECIMENS: None DRAINS: None PREOPERATIVE ANTIBIOTICS: Ancef 3 grams INDICATIONS: The patient is a 48-year-old who fell down the stairs, sustaining the above injuries. He has previously undergone ORIF of a left upper extremity distal radius fracture in 2019, with a retained volar plate. Reduction and plate fixation were recommended. The risks, benefits and expected outcomes were discussed in detail. These included but were not limited to: Infection, bleeding, injury to blood vessel or nerve, venous thromboembolism. All questions were answered to their satisfaction. Use of an energy assistant was necessary throughout the case for patient positioning and safety, maintenance of the reduction, surgical site dressing and splint application. A modifier 22 should be added to this case. Given the previous left wrist fracture surgery there was a significant amount of scarring which made the dissection difficult. Instruments necessary to remove the volar plate were not available. Therefore, a unique construct was necessary to achieve fixation for the left upper extremity fracture. Finally, given the patient's morbid obesity and comminution of the right upper extremity fracture; exposure, reduction and fixation were quite difficult. All of these factors more than tripled the time typically required to complete the case. PROCEDURE: The patient was placed supine on the operating room table. General anesthesia was administered. The left upper extremity was approached 1st. The previously placed volar, radial incision was utilized. This was extended proximally. Sharp dissection was carried through the scar to the flexor carpi radialis. It was sharply freed up circumferentially. Sharp dissection was carried deep through the floor of the FCR sheath. The FPL was mobilized ulnarly. The scar over the volar cortex of the radius and volar plate was sharply mobilized and reflected ulnarly. We fully exposed the plate. Despite having a modern and updated [employer] set, we did not have the correct screwdriver to remove the distal locking screws in the plate. Therefore, we removed the 3 screws in the shaft. We placed a [employer], 3.5 mm locking plate over the volar cortex of the radial shaft and [employer] plate. We were able to line up the screw holes such that we could get 3 screws in the distal fragment. We placed locking screws in the 2 distal holes. We then anatomically reduced the shaft fracture and placed a locking screw in the proximal fragment. The screw hole just distal to the fracture did not line up perfectly and therefore would not accommodate a locking screw. Therefore, we placed a cortical screw in this fragment. The construct was completed with 2 more locking screws in the proximal fragment. This provides an anatomic reduction of the radial shaft fracture. The distal radioulnar joint is now anatomically reduced. The forearm was placed in supination. A 0.062 in K-wire was placed across the distal radioulnar joint using the image intensifier. The tourniquet was released. The wound was irrigated with normal saline. It was closed with a 3-0 Vicryl and a 4-0 Monocryl in a subcuticular fashion. Glue was used to seal the skin. Attention was then turned to the right upper extremity. The limb was exsanguinated with the Logan bandage. The pneumatic tourniquet was inflated to 250 mm of mercury. A longitudinal incision was made over the flexor carpi radialis. Subcutaneous dissection was taken sharply through the FCR sheath. The FCR was retracted radially. Sharp dissection was carried through the floor of the FCR sheath. The flexor pollicis longus was retracted ulnarly. Sharp dissection was carried through the radial border of the pronator quadratus which was elevated ulnarly, exposing the fracture site. The energy assistant held retractors to expose the fracture. There is a marked amount of comminution. There are good volar landmarks to measurement coordinator our reduction. However the radial and ulnar landmarks are poor. We placed a [employer] wide, 41 hole volar locking plate over the volar cortex. It was provisionally held with a K-wire x 2, while the energy assistant held the reduction. Its placement was confirmed with the image intensifier. We placed a cortical screw in the slot. We then filled the distal screw holes with smooth locking pegs using the image intensifier to confirm their extra- articular placement. Finally, 3 locking screws were placed in the shaft fragment. This construct was imaged in multiple views. The lateral view looked perfect. However, the PA view showed the distal fragments are translated radially. Therefore, we took all of the distal pegs out of the distal fragments and translated them ulnarly. Since there were no decent landmarks to measurement coordinator our reduction it was quite difficult. We held the reduction in this position and placed 2 smooth pegs in the distal row. We then used the image intensifier to measurement coordinator our reduction which appears markedly improved. We filled all of the distal screw holes with smooth pegs. Now we imaged the construct in multiple views and felt we had an excellent reduction, with well placed implants. The wound was irrigated normal saline. Subcutaneous tissues were reapproximated with a 3-0 Vicryl, skin with a running 4-0 Monocryl in a subcuticular fashion. Glue was used to seal the skin. A dry dressing and short-arm dorsal volar splint was applied. The left upper extremity was placed in a sugar-tong splint with the forearm in supination. These steps were all completed by the energy assistant. The tourniquet was released, sponge and needle counts were correct x2. The patient tolerated the procedure well, there were no apparent complications. They were taken to the postanesthesia care unit in satisfactory condition. PLAN: The patient will be discharged home. They will work on elevation of the hands and active range of motion of the fingers. They will follow up next week in the office for a wound check with a PA, oblique, lateral and fossa lateral view of both wrists out of the splint prior to being seen in preparation for cast immobilization.
--- NOTE | 2023-12-28 13:25 | W.ANESCHARGE ---
Anesthesia Charges Start Date/Time Anesthesia Start Date: 12/28/23 Anesthesia Start Time: 09:03 Stop Date/Time Anesthesia Stop Date: 12/28/23 Anesthesia Stop Time: 13:17
[2023-12-28] MEDS: fentaNYL 100 MCG/2 ML inj 50 MCG IVP (13:31)
--- NOTE | 2023-12-28 13:55 | SUR.PHASEI ---
Patient sleeping comfortably. Patient has meet PACU anesthesia discharge criteria
--- NOTE | 2023-12-28 17:00 | PC.NURSE ---
End of shift: Patient pleasant and cooperative. To OR approx 0900. Returned from PACU 1400. Rating pain 5-6/10 and PRN Morphine given x1. Tolerating regular diet with no nausea. Dylon wraps to bilateral upper extremities C/D/I. Able to wiggle fingers. Elevated on pillows. Up with SBA.
--- NOTE | 2023-12-28 17:31 | PC.NURSE ---
Patient discharged to his uncle's home with uncle and uncle's in stable condition. Able to ambulate independently with SBA for safety. Tolerates ambulation at the time of discharge. Patient also tolerating food. Pain controlled by PRN pain medications which were effective. Rates pain 4/10 at time of discharge after 10mg of oral oxycodone was given. Discharge instructions completed with patient, his uncle and his uncle's . All parties verbalized understanding of discharge instructions. No further questions asked by all parties.
== END 2023-12-28 17:47 | disposition home or self-care (01) | DRG 511 ==
LOC: ED 17:28 → MEDSURG 18:14
PROVIDERS: Orthopaedic Surgery; Admitting Provider Family Medicine; Emergency Provider Family Medicine; Visit Provider Family Medicine
PROC: 0PSJ04Z Reposition Left Radius with Internal Fixation Device, Open Approach (ICD-10-PCS; CPT 25575; principal; 2023-12-28 08:45)
DX: S52.372A Galeazzi's fracture of left radius, initial encounter for closed fracture (principal); S52.531A Colles' fracture of right radius, initial encounter for closed fracture; W10.8XXA Fall (on) (from) other stairs and steps, initial encounter; Y92.018 Other place in single-family (private) house as the place of occurrence of the external cause; Z98.890 Other specified postprocedural states
CPT/HCPCS: 25526; 01830; 29125; 36415; 70450; 71045; 71275; 73100; 73110; 76000; 80048; 80053; 84484; 85025; 85379; 86140; 93005; 93970; 94761; 99285; 99291; A4580; A9270; C1713; J0665; J0690; J1100; J1170; J1885; J2250; J2270; J2405; J2704; J2710; J3010; J3490; J7120; Q9967

== ENCOUNTER 2024-04-16 09:45 | Outpatient (RCR) | payer OTHER, SELFPAY | END 2024-04-16 12:09 | disposition home or self-care (01) | PROVIDERS: Visit Provider Orthopaedic Surgery | DX: M25.531 Pain in right wrist (principal); Z51.89 Encounter for other specified aftercare | CPT/HCPCS: 97110; 97140; 97165; X5282 ==